=== PATIENT | female | born 1935 | race Caucasian/White ===

== ENCOUNTER → 2017-06-30 | Outpatient (CLI) | payer OTHER ==
[~2017-06-30] VITALS: Ht 152.4 cm; Wt 63.5 kg
[~2017-06-30] MED LIST: ASPIR 8181 MG PO; FELODIPINE 5 MG5 M1 PO; LOSARTAN POTAS100 MG PO; METOPROLOL SUCC50 MG PO; TYLENOL EXTRA500 MG PO; VITAMIN B-12500 MCG PO; VITAMIN D3400 UNIT PO
--- NOTE | ~2017-06-30 | HPC ---
[facility] [place] [address] [place] [address] PAIN MANAGEMENT CONSULTATION Name: ZULMA PAYNE Room #: REG [facility].#: [id number] Admission: 06/30/17 Attend Phys: Arvind Colbert MD Discharge: Date of : 31 Report #: [id number] THIS REPORT FOR: //name// CC: Anurag Colbert DATE OF SERVICE: 06/30/2017 CHIEF COMPLAINT: Pain in the right arm and neck. FOLLOWUP HISTORY: The patient is an 82-year-old female who has been referred to the pain clinic for evaluation of pain in the right shoulder and upper arm. HISTORY OF PRESENT ILLNESS: The patient is an 82-year-old female who has been experiencing pain in her right neck as well as in the right arm. She states that pain started to be problematic in about 03/2017. It involved her upper inner arm. Pain slowly progressed and worsened. Now, she is having significant pain and discomfort in her upper inner arm as well as having problems with activities of daily living because of this. Dressing, feeding and doing other activities are problematic. She has had some lancinating pain and tingling in the upper arm. Usually the pain is in the upper arm and does not extend below the elbow. She states that she did have an injection in her shoulder with no significant relief. Notes that the pain is quite problematic when she internally and externally rotates her shoulder. She is not having problems or symptoms on the contralateral left side. Does note some improvement with use of heat and feels that tramadol might be of some benefit. Her pain still is quite problematic and she also notes some weakness in her arm. ALLERGIES: MORPHINE CAUSED SOME ITCHING. CURRENT MEDICATIONS: Tylenol Extra Strength 500 mg every 4 hours p.r.n., vitamin B12 tablets, vitamin D3, or D3 400 units daily. Aspirin chewable 81 mg, ____ 5 mg tablets, losartan 100 mg tablet, metoprolol 50 mg. PAST MEDICAL HISTORY: Hypertension, arthritis, osteoporosis, glaucoma. PAST SURGICAL HISTORY: D and C 1953, bilateral hip and knee replacements in 2004, 2011, 2015, aortic heart valve replacement in 06/2014. SOCIAL HISTORY: She is a homemaker. Has seven children. Denies use of tobacco. Occasional alcohol, drugs, alcohol use, denies any illicit drug use. REVIEW OF SYSTEMS: Questionnaire indicates generally good health, wears glasses, glaucoma/cataracts, numbness and tingling sensation in the right arm. [facility] [address] [place] [address] PAIN MANAGEMENT CONSULTATION Name: ZULMA PAYNE Room #: REG CLI [facility].#: [id number] Admission: 06/30/17 Attend Phys: Arvind Colbert MD Discharge: Date of : 33 Report #: [id number] PAIN CLINIC ASSESSMENT. 1. The patient does have osteoarthritis, has had bilateral hip and knee replacements. 2. Height 5 feet 0 inches, weight 240 pounds, BMI is 27. 3. Vital signs: Blood pressure 165/88, pulse 88, respiratory rate 20, room air saturation 98%. 4. Pain intensity /10. 5. Fall risk. The patient does have some dizziness and use some help with falling, but does not fall in the last 3 months. 6. Blood thinner. The patient is not on a blood thinner. 7. History of hypertension. The patient is being treated for hypertension. 8. Opioid therapy greater than 6 weeks. The patient is not on an opioid contract. 9. Risk assessment tool. 10. Functional assessment tool. 11. Recreational drug use. The patient denies use of recreational drugs. 12. Tobacco: The patient denies use of tobacco. 13. Alcohol, the patient drinks alcoholic beverage about twice monthly. PHYSICAL EXAMINATION: GENERAL: The patient is a well-developed, well-nourished white female. Appears her stated age. ORIENTATION: The patient is alert and oriented x 3. AFFECT: The patient's affect is appropriate. HEAD, EYES, EARS, NOSE, AND THROAT: The patient is normocephalic, atraumatic. Extraocular muscles intact. She has no bruits. No adenopathy in the neck area. CHEST: Clear to auscultation. Pulses are symmetrical without bruits. LUNGS: Clear. ABDOMEN: Soft, nontender, without masses. MUSCULOSKELETAL: Reasonably good range of motion of the upper and lower extremities. Muscle strength in the lower extremity to be 5/5 for her age. Complains of some pain and discomfort in the right shoulder area. Palpation in the area of the rhomboids cause some discomfort in the area over the scapula. The patient has pain that is radiating down the posterior portion of her right arm. LABORATORY DATA: MRI of the cervical spine dated 05/28/2017 reveals #1, C2-C3 facets show mild disk bulge present. Marked bilateral hypertrophic facet arthritis present. Foramen mildly/mild right/marked left foraminal stenosis present. Possibly affecting the exiting C3 nerve. Mild contour alteration of the ventral thecal sac present. Thecal sac 1.2 cm AP. #2, C3-C4, moderate interspace narrowing. Disk bulge and endplate uncinate osteophyte present. Eccentric left, mild facet osteoarthritis present. Foramen marked left foraminal stenosis and mild effacement of the ventral thecal sac present. This possibly effects the exiting C4 nerve root. Thecal sac 1.2 cm AP. #3, C5-C4 inner space height and intervertebral disk contour is within normal limits. [facility] [address] [place] [address] PAIN MANAGEMENT CONSULTATION Name: ZULMA PAYNE [id number] Admission: 06/30/17 Attend Phys: Arvind Colbert MD Discharge: Date of : 33 Report #: [id number] Midline endplate osteophyte present. Facet ankylosis present. Foramen are unremarkable. Thecal sac 1.2 cm AP. #4, C5-C6 moderate interspace narrowing. Mild circumferential disk bulge, small posterior central disk protrusion and endplate uncinate osteophyte present. Moderate facet osteoarthritis present. Mild bilateral foraminal stenosis present. Mild central stenosis present. Thecal sac 1.1 cm AP. #5, C6-C7 intervertebral disk and facets are fused. #6, no foramen stenosis. Mild contour alteration of the ventral thecal sac. Thecal sac 0.8 cm AP. #7, C7-T1 intervertebral disk and facets are fused. Unremarkable foramen. Thecal sac 1.1 cm AP. IMPRESSION: 1. Cervical radicular pain with bilateral foraminal stenosis in the upper, C5-C6 area. 2. Hypertension, joint disease/arthritis in the upper cervical area. RECOMMENDATIONS: We discussed the treatment options with the patient. Risks and benefits of an epidural steroid injection were discussed. Possible complications were reviewed. The patient is having pain and discomfort in the upper right shoulder/scapular area as well as pain radiating down the shoulder and into the arm. It appears that she is experiencing some irritation of the nerve roots in this area. We will proceed with a cervical epidural steroid injection. We will petition her insurance company for the for ability to perform this procedure given the patient is experiencing pain and discomfort, muscle weakness in the aforementioned areas. She will follow up in the pain clinic at which time she will undergo a cervical epidural steroid injection to help decrease the pain and discomfort that she is experiencing. We would like to thank you for letting us to participate in her care. We hope she continues to improve. By: [id number] Arvind Colbert MD /[facility]
[2017-06-30 13:02] VITALS: BP 165/88
== END ==
LOC: PAIN 07:09
DX: M47.22 Other spondylosis with radiculopathy, cervical region (principal); I10 Essential (primary) hypertension; Z88.5 Allergy status to narcotic agent

== ENCOUNTER → 2017-07-09 | Outpatient (CLI) | payer OTHER ==
[~2017-07-09] VITALS: Ht 152.4 cm; Wt 66.1 kg
--- NOTE | ~2017-07-09 | HPC ---
[facility] [address] [place] [address] PAIN MANAGEMENT CONSULTATION Name: ZULMA PAYNE [id number] Admission: 07/09/17 Attend Phys: Arvind Colbert MD Discharge: Date of : 33 Report #: [id number] THIS REPORT FOR: //name// CC: Anurag Colbert DATE OF SERVICE: 07/09/2017 FOLLOWUP COMPLAINT: Pain in the right arm in the neck. FOLLOWUP HISTORY: The patient is an 82-year-old female who has been seen in the pain clinic because of cervical radiculopathy. She returns today indicating that her pain still involves the upper right shoulder area and scapular area. She feels that the pain is still somewhat problematic and would like to proceed with epidural steroid injection today. She has returned to the pain clinic. She is having some pain and discomfort on the left side and notes some improvement when she uses heat, tramadol and slight stretching. She has also noticed some weakness in the affected arm. ALLERGIES: MORPHINE CAUSED SOME ITCHING. MEDICATIONS: Tylenol Extra Strength 500 mg q. 4 hours, vitamin B12, vitamin D3 400 units daily, aspirin 81 mg chewable, lovastatin 100 mg daily, and metoprolol 50 mg daily. PAIN CLINIC ASSESSMENT: 1. The patient does have some arthritic changes in the upper neck and arm area. 2. Height 5 feet 0 inches, weight 145 pounds, BMI is 28.5. 3. Vital Signs: 125/78. Pulse 87, respiratory rate 16, room air saturation 97%. 4. Pain intensity increases with activities of daily living. 5. Fall risk. The patient has not fallen in the last 3 months. 6. Blood thinner. The patient denies use of blood thinner. 7. History of hypertension. The patient is being treated for hypertension. 8. Opioid therapy, greater than 6 weeks. The patient is not on opioid therapy. 9. Functional assessment. 10. Risk assessment tool. 11. Recreational drug use, never used these drugs. 12. Tobacco: Never smoked cigarettes. 13. Alcohol: Denies frequent use of alcoholic beverages. PHYSICAL EXAMINATION: GENERAL: The patient is a well-developed white female. Does appear her stated age. She is alert and oriented x 3. Affect is appropriate. Speech is fluent. HEENT: The patient is normocephalic, atraumatic. Extraocular eye muscles [address] [address] PAIN MANAGEMENT CONSULTATION Name: ZULMA PAYNE Room #: REG CLI [facility]#: [id number] Admission: 07/09/17 Attend Phys: Arvind Colbert MD Discharge: Date of : 33 Report #: [id number] intact. Hearing is within normal limits. Mucous membranes are moist. Sclerae are normal. NECK: Without adenopathy or JVD. CHEST: Clear to auscultation. Pulses are symmetrical without bruits. LUNGS: Clear to auscultation. ABDOMEN: Soft, nontender, without masses. MUSCULOSKELETAL: The patient has some arthritic changes which caused her to walk in a somewhat kyphotic/forward leaning motion. Muscle strength for an 82-year-old is within normal limits at 5/5 for her age. Complains of pain and discomfort in her right shoulder area. Palpation in the area of the scapula and the rhomboids cause some increased pain and discomfort. Has some pain radiating down the posterior portion of her right arm and this is where the pain and discomfort is often located with activity. IMPRESSION: 1. Cervical radiculopathy with pain radiating down into for the right arm with some weakness associated with this in the C5-C6 area. 2. Hypertension/joint disease/arthritis in the cervical areas. 3. Hypertension. 4. Osteoporosis. 5. Glaucoma. RECOMMENDATIONS: We discussed treatment options with the patient. Risks and benefits of a cervical epidural steroid injection were again reviewed. Possible complication of the procedure were discussed. They could include but are not limited to infection, increased muscle soreness, headache, bleeding, trauma to the nerves, worsening of pain, improvement in pain. The patient elects to proceed. PROCEDURE NOTE: The patient was placed in the prone position. Fluoroscopy was used to identify the C7-T1 interspace. This area had been sterilely prepped with Betadine and infiltrated with 0.25% bupivacaine. A total of 120 mg of triamcinolone was injected. The patient tolerated the procedure well. She was then taken to the recovery room. Band-Aid was placed. There was no bleeding. She remained in the pain clinic for an appropriate amount of time. She does walk with use of a cane and had no problems with ambulation at the time of discharge. A total of 16 seconds fluoro time was used. By: [id number] Arvind Colbert MD /[email or web address]
[2017-07-09 08:49] VITALS: BP 129/78
== END | disposition home or self-care (01) ==
LOC: PAIN 06:46
DX: M54.12 Radiculopathy, cervical region (principal); I10 Essential (primary) hypertension; M19.90 Unspecified osteoarthritis, unspecified site; M81.0 Age-related osteoporosis without current pathological fracture; H40.9 Unspecified glaucoma; Z79.899 Other long term (current) drug therapy; Z88.8 Allergy status to other drugs, medicaments and biological substances